=== PATIENT | female | born 1970 | race Caucasian/White ===

== ENCOUNTER 2018-07-16 07:26 | Day surgery (SDC) | payer OTHER ==
[~2018-07-16 07:26] MED LIST: CEFAZOLIN 1 GM INJ; CEFAZOLIN 2 GM/50 ML (PMX) 50 ML IVPB; FENTAnyl 50 MCG/ML VIAL; KETOROLAC 30 MG INJ; METOCLOPRAMIDE 10 MG INJ; MIDAZOLAM 1 MG/ML 2 ML INJ; ONDANSETRON 4 MG INJ; PROPOFOL 200 MG INJ; SOD CHLORIDE 0.9% 1,000 ML IV
[2018-07-16 08:21] LABS: ADD MAN DIFF? NO
[2018-07-16 08:24] LABS: BASOPHILS % 0.4 % (0.0-2.0); EOSINOPHILS # 0.3 10^3/ul (0.0-0.5); EOSINOPHILS % 3.1 % (0.0-7.0); HEMOGLOBIN 11.1 g/dl (12.0-16.0); LYMPHOCYTES # 2.8 10^3/ul (0.8-2.9); LYMPHOCYTES % 28.7 % (15.0-51.0); MEAN CORPUSCULAR HEMOGLOBIN 26.7 pg (29.0-33.0); MEAN CORPUSCULAR HGB CONC 31.7 g/dl (32.0-37.0); MEAN CORPUSCULAR VOLUME 84.1 fl (82.0-101.0); MEAN PLATELET VOLUME 10.3 fl (7.4-10.4); MONOCYTE # 0.5 10^3/ul (0.3-0.9); MONOCYTES % 5.3 % (0.0-11.0); NEUTROPHIL # 6.2 10^3/ul (1.6-7.5); NEUTROPHILS % 62.3 % (39.0-77.0); PLATELET COUNT 431 10^3/UL (140-415); RED BLOOD COUNT 4.16 10^6/ul (4.20-5.40); RED CELL DISTRIBUTION WIDTH 13.7 % (11.5-14.5)
[2018-07-16 08:24] LABS: WHITE BLOOD COUNT 9.9 10^3/ul (4.8-10.8)
[2018-07-16 08:47] LABS: INR 0.97
[2018-07-16 08:48] LABS: PARTIAL THROMBOPLASTIN TIME 30.9 Sec (23.0-35.0)
[2018-07-16 08:58] LABS: ALANINE AMINOTRANSFERASE 29 IU/L (13-69); ALBUMIN 3.4 g/dl (3.3-4.9); ALBUMIN/GLOBULIN RATIO 0.91; ALKALINE PHOSPHATASE 111 IU/L (42-121); ANION GAP 10 (5-13); ASPARTATE AMINO TRANSFERASE 24 IU/L (15-46); BILIRUBIN,INDIRECT 0.4 mg/dl (0-1.1); BILIRUBIN,TOTAL 0.4 mg/dl (0.2-1.3); BLOOD UREA NITROGEN 9 mg/dl (7-20); CALCIUM 8.6 mg/dl (8.4-10.2); CARBON DIOXIDE 24 mmol/L (21-31); CHLORIDE 107 mmol/L (97-110); CREATININE 0.53 mg/dl (0.44-1.00); GLUCOSE 192 mg/dl (70-220); POTASSIUM 3.9 mmol/L (3.5-5.1); SODIUM 141 mmol/L (135-144); TOTAL PROTEIN 7.1 g/dl (6.1-8.1)
[2018-07-16] MEDS ORDERED: MEPERIDINE 25 MG INJ IV (10:00)
[2018-07-16] MEDS ORDERED: DIPHENHYDRAMINE 50 MG INJ IV (10:00)
[2018-07-16] MEDS ORDERED: HYDROmorphONE 1 MG/5 ML IV SYRINGE IV ×3 (10:00)
[2018-07-16] MEDS ORDERED: ONDANSETRON 4 MG INJ IV (10:00)
[2018-07-16] MEDS ORDERED: OXYCODONE/ACETAMINOPHEN (5/325) TAB PO ×2 (10:00)
[2018-07-16] MEDS: BUPIVACAINE 0.5% (SDV) 30 ML INJ (10:16)
[2018-07-16] MEDS ORDERED: IBUPROFEN 800 MG TAB PO (11:00)
== END 2018-07-16 12:07 | disposition home or self-care (01) ==
LOC: SDS 07:26
DX: D17.0 Benign lipomatous neoplasm of skin and subcutaneous tissue of head, face and neck (principal); E11.9 Type 2 diabetes mellitus without complications
CPT/HCPCS: 14041; 80053; 82962; 85025; 85610; 85730; 88307